=== PATIENT | female | born 1980 | race Caucasian/White ===

== ENCOUNTER 2019-10-21 17:53 | Emergency (ER) | payer SELFPAY ==
[~2019-10-21] VITALS: Ht 152.4 cm; Wt 97.5 kg
[2019-10-21] MEDS ORDERED: NORCO 5-325 TA1 EACH PO (23:55)
== END 2019-10-21 23:55 | disposition home or self-care (01) ==
LOC: ED 17:53
DX: S43.004A Unspecified dislocation of right shoulder joint, initial encounter (principal); X58.XXXA Exposure to other specified factors, initial encounter; Y93.89 Activity, other specified; Y92.89 Other specified places as the place of occurrence of the external cause; Y99.8 Other external cause status